=== PATIENT | male | born 1960 | race Caucasian/White ===

== ENCOUNTER 2019-07-28 06:36 | Day surgery (SDC) | payer BC ==
[~2019-07-28 06:36] MED LIST: Acetaminophen TAB* 325 MG PO PRN; Buffered Lidocaine 1% SYRIN* 1 ML/SYRINGE INTRADERM ONE
[2019-07-28] MEDS ORDERED: fentaNYL* 50 MCG/ML 2 ML VIAL (100 MCG VIAL) ONE (07:34)
[2019-07-28] MEDS ORDERED: Midazolam* 1 MG/ML 2 ML VIAL (2 MG) ONE (07:34)
[2019-07-28] MEDS ORDERED: Triamcinolone Acetonide* 40 MG/ML 1 ML VIAL ONE (07:46)
[2019-07-28 08:57] VITALS: BP 105/59
[2019-07-28] MEDS ORDERED: acetaZOLAMIDE TAB* 250 MG ONE (09:29)
[2019-07-28] MEDS ORDERED: Ketorolac 0.5% OPHTH (NF) 0.5 % 5 ML BTL ONE (09:29)
[2019-07-28] MEDS ORDERED: Cyclopentolate 1% OPTH.SOL* 2 ML BTL ONE (09:29)
[2019-07-28] MEDS ORDERED: Povidone Iodine 5% OPTH* 30 ML BTL ONE (09:29)
[2019-07-28] MEDS ORDERED: Phenylephrine OPHTH SOL 2.5%* 2 ML ONE (09:29)
[2019-07-28] MEDS ORDERED: Lidocaine 2% w/ EPI 1:200,000* 20 ML SDV VIAL ONE (09:29)
[2019-07-28] MEDS ORDERED: Lidocaine 1% MPF ** 5 ML VIAL ONE (09:29)
[2019-07-28] MEDS ORDERED: Neomycin/Polymy/Dex OPTH.SUSP* MAXITROL 0.1% 5 ML ONE (09:29)
[2019-07-28] MEDS ORDERED: Proparacaine 0.5% OPHTH.SOL* 15 ML BTL ONE (09:29)
--- NOTE | 2019-07-29 00:55 | OP ---
ADDENDUM NOW INCLUDED ON THIS REPORT DATE OF OPERATION: 07/28/19 - [facility] DATE OF : 58 SURGEON: Matt Bender M.D. PREOPERATIVE DIAGNOSIS: Cataract, left eye. POSTOPERATIVE DIAGNOSIS: Cataract, left eye. OPERATIVE PROCEDURE: Extracapsular cataract extraction with intraocular lens implant left eye. DESCRIPTION OF PROCEDURE: The patient was brought to the operating room after being given 1/2% Alcaine with epinephrine drops in the preoperative area. The eye was prepped and draped in the usual sterile fashion. Sterile drape and eyelid speculum were placed. Again, topical 1/2% Alcaine with epinephrine was given. A paracentesis incision was made at the 3 o'clock position with the No. 75 blade. Clear cornea incision 2.2 x 2.2-mm was created at the 6 o'clock position starting at the anterior limbus using the 2.2-mm keratome. The anterior chamber was irrigated with 0.4 mL of 1% non-preservative intracameral lidocaine and filled with DisCoVisc. A capsulorrhexis was completed using the cystotome and the Utrata forceps. Hydrodissection was performed with balanced salt solution. The lens nucleus was removed with the Phacoemulsification handpiece without incident. Cortex was removed with the irrigation-aspiration handpiece. The capsular bag was re-inflated using DisCoVisc and an [id number] 18.5 implant was inserted with the shooter. The irrigation-aspiration handpiece was used to remove all residual DisCoVisc. The eye was refilled with balanced salt solution and the wound checked and found to be watertight. Topical Maxitrol drops were given. Kenalog 10 mg per mL was injected 1 cc subtenon at the end of the procedure. ADDENDUM CORRECTION: The concentration of Kenalog was 40 mg/mL, 1 mL injected subtenon's. [id number]/[facility] #: [id number]/[facility] #: [id number] MTDD
--- NOTE | 2019-07-29 01:21 | OP ---
OPERATIVE NOTE: ADDENDUM: The concentration of Kenalog was 40 mg/mL, 1 mL injected subtenon's. [id number]/[facility] #: [id number] [facility]
== END 2019-07-28 08:46 | disposition home or self-care (01) ==
LOC: OREAST 06:36
PROVIDERS: ATTEND Specialist
DX: H25.812 Combined forms of age-related cataract, left eye (principal); H33.8 Other retinal detachments; I10 Essential (primary) hypertension; Z95.0 Presence of cardiac pacemaker; I25.10 Atherosclerotic heart disease of native coronary artery without angina pectoris; I25.2 Old myocardial infarction; K21.9 Gastro-esophageal reflux disease without esophagitis; M10.9 Gout, unspecified; Z87.442 Personal history of urinary calculi
CPT/HCPCS: A9270-GY; J2250; J3010; J3301; V2632